=== PATIENT | female | born 1975 | race Caucasian/White ===

== ENCOUNTER → 2017-01-27 | Outpatient (CLI) | payer OTHER ==
[2016-06-08 23:13] VITALS: BP 137/81
[~2017-01-27] MED LIST: FLUT1DIS3 IH; LAMO200T PO; LAMO25TA5 PO; LEVO150T5 PO; LEVO75TA5 PO; LORA1TAB PO; LURA120T PO; LURA40TA PO; OXYC10TA PO; OXYC5CAP3 PO; PARO40TA3 PO; PROAIR HFA8.5 GM IH; TRAZ100T12 PO; VARE0.5T PO; VARE1TAB5 PO
[2017-01-27 15:05] LABS: BASO # 0.1 x10^3/uL (0.0-0.2); BASO % 1 % (0-3); EOS % 2 % (0-3); HEMATOCRIT 39.2 % (36.0-47.0); HEMOGLOBIN 13.6 g/dL (12.0-15.5); LYMPH # 1.6 x10^3/uL (1.0-4.8); LYMPH % 19 % (24-48); MEAN CORPUSCULAR HEMOGLOBIN 30 pg (25-35); MEAN CORPUSCULAR HGB CONC 35 g/dL (31-37); MEAN CORPUSCULAR VOLUME 87 fL (79-100); MONO % 6 % (0-9); NEUT % 72 % (31-73); PLATELET COUNT 285 x10^3/uL (140-400); RED BLOOD COUNT 4.52 x10^6/uL (3.50-5.40); RED CELL DISTRIBUTION WIDTH 14.8 % (11.5-14.5); WHITE BLOOD COUNT 8.6 x10^3/uL (4.0-11.0)
--- NOTE | 2017-01-27 15:27 | EKG ---
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
[2017-01-27 15:41] LABS: ALBUMIN 3.4 g/dL (3.4-5.0); ALBUMIN/GLOBULIN RATIO 0.9 (1.0-1.7); CALCIUM 9.1 mg/dL (8.5-10.1); CREATININE 0.9 mg/dL (0.6-1.0); GFR 69.3; POTASSIUM 3.8 mmol/L (3.5-5.1); TOTAL BILIRUBIN 0.2 mg/dL (0.2-1.0)
[2017-01-27 15:54] LABS: BILIRUBIN,URINE NEGATIVE (NEG); GLUCOSE,URINE NEGATIVE (NEG); NITRITE,URINE NEGATIVE (NEG); PROTEIN,URINE NEGATIVE (NEG-TRACE); UROBILINOGEN,URINE 0.2 mg/dL (0.2 mg/dL)
--- NOTE | 2017-01-27 15:59 | RAD ---
Indication preop. Anticipated hysterectomy. PA and lateral views of the chest were obtained and are compared to an examination 08/29/2015. The heart and pulmonary vessels are within normal limits. Acute parenchymal infiltrate is not seen. Significant pleural fluid is not present. There is no pneumothorax. The bony structures appear grossly intact. The stomach is somewhat distended with air. IMPRESSION: No acute or focal process seen in the chest
[2017-01-27 16:17] LABS: BACTERIA,URINE MODERATE /HPF (0-FEW); SQUAMOUS EPITHELIAL CELL,UR MANY /LPF; WBC,URINE 20-40 /HPF (0-4)
== END | disposition home or self-care (01) ==
LOC: SURGPAT 14:23
PROVIDERS: ATTEND Obstetrics & Gynecology
DX: Z01.818 Encounter for other preprocedural examination (principal)
CPT/HCPCS: 36415; 71020; 80053; 81001; 85027; 87086; 93005

== ENCOUNTER 2017-02-04 05:50 | Observation (INO) | payer OTHER ==
[~2017-02-04] VITALS: Ht 165.1 cm; Wt 142.4 kg
[2017-02-04] VITALS (12 sets, daily range): BP systolic 97–135; BP diastolic 45–72
[2017-02-04 06:25] LABS: NEG OBC UR NEG; POS OBC UR POS
[2017-02-04] MEDS ORDERED: LIDOCAINE 1% 1 ML SYRINGE. ID PRN (07:00)
[2017-02-04] MEDS ORDERED: HYDROmorphone 2 MG/ML VIAL IV PRN (07:00)
[2017-02-04] MEDS ORDERED: PROCHLORPERAZINE 10 MG/2 ML VIAL. IV PRN (07:00)
[2017-02-04] MEDS ORDERED: fentaNYL PF VIAL 100 MCG/2 ML VIAL IV PRN (07:00)
[2017-02-04] MEDS ORDERED: IV RINGERS,LACTATED 1000ML 1,000 ML IV SCH (07:00)
[2017-02-04] MEDS ORDERED: ONDANSETRON PF 4 MG/2 ML VIAL. IV PRN ×2 (07:00→09:45)
[2017-02-04] MEDS ORDERED: ESTROGENS, CONJ VAGINAL CREAM 30GM TUBE. ONE (07:01)
[2017-02-04] MEDS ORDERED: BUPIVACAINE-EPI 0.25%-1:200000 MPF 30 ML VIAL. ONE (07:01)
[2017-02-04] MEDS ORDERED: METHYLENE BLUE 1% 1 ML VIAL. ONE (07:01)
[2017-02-04] MEDS ORDERED: ROCURONIUM 50 MG/5 ML VIAL. ONE (07:17)
[2017-02-04] MEDS ORDERED: MIDAZOLAM HCL/PF 2 MG/2 ML VIAL. ONE (07:17)
[2017-02-04] MEDS ORDERED: fentaNYL PF VIAL 250 MCG/5 ML VIAL ONE (07:17)
[2017-02-04] MEDS ORDERED: ONDANSETRON PF 4 MG/2 ML VIAL. ONE (07:18)
[2017-02-04] MEDS ORDERED: LIDOCAINE 2% PF Vial for OR 5 ML VIAL. ONE (07:18)
[2017-02-04] MEDS ORDERED: DESFLURANE > 120 MINUTES IH ONE (07:18)
[2017-02-04] MEDS ORDERED: PROPOFOL 20 ML IV ONE (07:18)
[2017-02-04] MEDS ORDERED: DEXAMETHASONE SOD PHOS 20 MG/5 ML VIAL. ONE (07:18)
[2017-02-04] MEDS ORDERED: FAMOTIDINE 20 MG/2 ML VIAL ONE (07:23)
[2017-02-04] MEDS ORDERED: NON FORMULARY ITEM (Albuterol Sulfate (Proair Hfa Inhaler) 2 PUFF) IH SCH (07:45)
[2017-02-04] MEDS: ALBUTEROL SULFATE 2.5 MG/3 ML NEBU. NEB SCH ×2 (08:00→12:30)
[2017-02-04] MEDS ORDERED: BUDESONIDE 0.5 MG/2 ML NEBU. NEB SCH (08:00)
[2017-02-04] MEDS ORDERED: ALBUTEROL SULFATE 2.5 MG/3 ML NEBU. NEB PRN (08:00)
[2017-02-04] MEDS ORDERED: GLYCOPYRROLATE 1 MG/5 ML VIAL. ONE (08:22)
[2017-02-04] MEDS ORDERED: NEOSTIGMINE 10 MG/10 ML VIAL. ONE (08:22)
[2017-02-04] MEDS ORDERED: VARENICLINE 0.5 MG TABLET. PO SCH (09:00)
[2017-02-04] MEDS ORDERED: NON FORMULARY ITEM (Fluticasone/Salmeterol (Advair 250-50 Diskus) 1 PUFF) IH SCH (09:00)
[2017-02-04] MEDS ORDERED: MORPHINE SULFATE 10 MG/ML VIAL. ONE (09:19)
--- NOTE | 2017-02-04 09:33 | PDOC ---
BRIEF OPERATIVE NOTE Date: February 04, 2017 Pre-Op Diagnosis menorrhagia, failed IUD, pelvic pain Post-Op Diagnosis same plus endometriosis Procedure Performed LAVH/BSO Surgeon Dr. Almita Young Grit Removal Operator Dr. Vanessa Schumacher Anesthesiologist Dr. Jolley Anesthesia Type: General Blood Loss 200cc IV Fluid see anesthesia records Urine Output 75cc clear via bauman catheter Specimens Obtained cervix, uterus, bilateral tubes and ovaries Findings mildly enlarged uterus, normal bilateral tubes with evidence of prior tubal ligation, and ovaries Complications none Additional Remarks [id number] ALMITA YOUNG MD February 04, 2017 09:33
[2017-02-04] MEDS: fentaNYL PF VIAL 100 MCG/2 ML VIAL IV PRN ×2 (09:38→09:59)
[2017-02-04] MEDS ORDERED: ZOLPIDEM 5 MG TABLET. PO PRN (09:45)
[2017-02-04] MEDS ORDERED: CALCIUM CARBONATE 500 MG TAB.CHEW PO PRN (09:45)
[2017-02-04] MEDS ORDERED: 0.9 % SODIUM CHLORIDE 10 ML DISP.SYRIN. IV PRN (09:45)
[2017-02-04] MEDS ORDERED: ESTRADIOL WEEKLY 0.1 MG PATCH. TD SCH (09:45)
[2017-02-04] MEDS ORDERED: LACTULOSE 20 GM/30 ML SOLUTION. PO PRN (09:45)
[2017-02-04] MEDS ORDERED: HYDROcodone/APAP 5/325MG 1 TAB TABLET PO PRN (09:45)
[2017-02-04] MEDS ORDERED: diphenhydrAMINE 50 MG/ML VIAL IV PRN (09:45)
[2017-02-04] MEDS ORDERED: diphenhydrAMINE HCL 25 MG CAPSULE PO PRN (09:45)
[2017-02-04] MEDS ORDERED: MAGNESIUM HYDROXIDE 2,400 MG/30 ML ORAL.SUSP. PO PRN (09:45)
[2017-02-04] MEDS ORDERED: MORPHINE SULFATE 2 MG/ML DISP.SYRIN. IV PRN (09:45)
[2017-02-04] MEDS ORDERED: MAG HYDROX/ALUMINUM HYD/SIMETH 30 ML ORAL.SUSP PO PRN (09:45)
[2017-02-04] MEDS ORDERED: SIMETHICONE 80 MG TAB.CHEW PO PRN (09:45)
[2017-02-04] MEDS ORDERED: NALOXONE 0.4 MG/ML VIAL. IV PRN (09:45)
[2017-02-04] MEDS: KETOROLAC TROMETHAMINE 30 MG/ML INJ. IV PRN ×2 (10:15→15:52)
[2017-02-04] MEDS: MORPHINE SULFATE 2 MG/ML DISP.SYRIN. IV PRN ×2 (10:24→10:40)
--- NOTE | 2017-02-04 12:23 | OP ---
DATE OF SURGERY: 02/04/2017 PREOPERATIVE DIAGNOSES: Menorrhagia, failing Mirena IUD, and pelvic pain. POSTOPERATIVE DIAGNOSES: Menorrhagia, failing Mirena IUD, pelvic pain, and endometriosis. PROCEDURE PERFORMED: Laparoscopic-assisted vaginal hysterectomy, bilateral salpingo-oophorectomy. SURGEON: Fabien Young M.D. and Vanessa Schumacher MD ANESTHESIA: General. ESTIMATED BLOOD LOSS: 200 mL. URINE OUTPUT: 75 mL clear via Higgins catheter. SPECIMEN REMOVED: Cervix, uterus, and bilateral tubes and ovaries. FINDINGS: Mildly enlarged uterus, normal bilateral tubes with evidence of prior tubal ligation, normal bilateral ovaries. She did have some endometriosis on the left pelvic sidewall overlying the ureter area. However, it was very dense and thick with adipose tissue, so difficult to see within that area with a patch of endometriosis. COMPLICATIONS: None. DESCRIPTION OF PROCEDURE: This patient was taken to the Operating Room where general anesthesia was placed. The patient was placed in dorsal lithotomy position in Jaime stirrups. The patient's abdomen and vagina were prepped and draped in the normal sterile fashion, and a Higgins catheter was inserted under sterile technique. After a timeout was performed, a bivalve speculum was placed in the patient's vagina. A single tooth tenaculum was used to grasp the anterior lip of the cervix. The ValtchBebo uterine manipulator was placed through the endocervical os, locked on the single tooth tenaculum, and the bivalve speculum was then removed. Top gloves were discarded and changed. Attention was then turned to the abdomen. Upon pushing the uterus up and feeling it mildly enlarged, I did not want to go right at the umbilicus as she was obese with a shortened abdomen from the waist to the pubic bone, so I did go above and to the left ovary scar from her previous Kevin fundoplication, so I went over this scar, carried it down to the underlying layer with a curved Emely and used the Visiport to directly enter the abdominal cavity. Opening patient pressure was 4 mmHg. At this point, carbon dioxide gas was used to appropriately insufflate the abdominal cavity to maintain a pressure of 15 mmHg. The patient was placed in Trendelenburg position, and direct abdominal placement was confirmed via the laparoscope. There were no pelvic adhesions. The gutters looked clear. The right upper quadrant, where the liver was, looked clear. So, right and left lower quadrant ports were placed under direct visualization atraumatically with 5-mm Ethicon disposable atraumatic ports. At this point, the left round ligament was identified, cauterized, and cut in a stepwise fashion creating a window in the mesosalpinx, going down and making that bladder flap sharply with the monopolar tip and lifting and cutting it along the edge. Once this was done, the left tube and ovary were elevated. That patch of endometriosis was seen on the left pelvic sidewall when we were examining and looking for the ureter. We went high up on the infundibulopelvic ligament just under the ovary, cauterized and cut it taking the ovary per the patient's request and going down and getting the uterine vessels on this side as well. Once this was done, the exact same thing was done on the right side first starting at the right round ligament with using the LigaSure Advance, cauterizing and cutting in a stepwise fashion, creating that window in the mesosalpinx, going down and further meeting that bladder flap anteriorly, and elevating the right tube and ovary. The right side was less fatty, less ____, and the ureter could be seen coursing low in the pelvis. So again, we stayed high on the infundibulopelvic ligament, cauterizing and cutting that ligament, going down and getting the uterines on this side with the uterus starting to deondre. Making sure the bladder was down anteriorly, crossing contralaterally, hugging the cervix, staying vertical, going down through the cardinal and broad ligaments to the uterosacral ligaments bilaterally. Once this was done, the uterus was free. All instruments were removed from the abdomen, and attention was turned vaginally. The Valtchev and single tooth were removed. A short weighted speculum was placed in the patient's vagina. Thyroid Matthew clamps were placed on the anterior and posterior lips of the cervix respectively. A scalpel was used to make a circumferential incision in the cervix. Once this was done, an open Ray-Elise was used. There was a good opening on the patient's left side, ____ a plane that could be found. I believe I went a little deep and was actually cutting into the cervix, right in the middle, so I was able to find that and cut a track over from there to the plane, and then used Hanson and Metzenbaum scissors to cut in the correct plane anteriorly. I also elevated the cervix, and the posterior cul-de-sac was sharply entered with the Hanson scissors. A #0 Vicryl stitch was used to secure the posterior peritoneum to the vaginal cuff here, and it was tagged with a curved Emely clamp, and a needle was cut and passed off. The short weighted speculum was removed and replaced with the long weighted Rita speculum. At this point, curved Nina clamps x2 were placed on the patient's left uterosacral ligament. They were doubly clamped with curved Heaneys, cut with Hanson scissors, and suture ligated x2 with #0 Vicryl taking the second one through the vaginal cuff securing the uterosacral ligament to the vaginal cuff and tagging it with a straight Emely clamp, cutting and passing the needle off. Again, I could get a right angle clamp around this side, so it was taken around freeing up the entire left side. It was taken around. The remaining pedicle was cauterized with the vaginal LigaSure Max with the right angle clamp delineating the pedicle and then cauterizing with the vaginal LigaSure Max and cutting with Hanson scissors. So the entire left side was free. The right side was not as clearly delineated, so a bite was taken with the vaginal LigaSure Max until I could get the right angle clamp around the remaining pedicle and again the vaginal LigaSure Max was used to cauterize and then using the Hanson scissors to cut this in a stepwise fashion until the entire right side was free as well. The cervix, uterus, bilateral tubes and ovaries were delivered in total and passed off for permanent pathology. There was no Ray-Elise. As soon as I got in, I did remove it and pass it off right away just putting the curved Karina in anteriorly. A sponge stick was used to examine the pedicles. I did go back since the right side did not have a good uterosacral bite, and it was different. I went back and tried to get a piece of that pedicle and secure it to the vaginal cuff and tagged it. A #0 Vicryl stitch was used here and tagged it with a straight Emely clamp so I could examine all the pedicles and have something when I did the peritoneal stitch as well. There appeared to be no active bleeding. The anterior peritoneum was grasped with a long Allis. A 2-0 Vicryl was taken through the anterior bladder, peritoneum, left uterosacral ligament, posterior peritoneum, and right uterosacral ligament, thus closing the peritoneum in a pursestring like fashion. This was cut and so were both uterosacral tags. At this point, a full length 2-0 Vicryl was taken with a running locked stitch through the vaginal cuff, and it was tied to that posterior cuff tag. As a few stitches in the middle were placed where it kind of dove in where the uterosacrals where just to make sure they were hemostatic and enforced this vaginal cuff, but it was hemostatic and looked good. So, all instruments were removed from the vagina, and all gloves were discarded and changed, and attention was turned abdominally again for a second look. At this point, the gas was reinsufflated. The patient was placed back in Trendelenburg with excellent results. There was no active bleeding. The cul-de-sac was dry. Both pericolic gutters were dry. Up near the liver again, it appeared clear. So, copious irrigation was done to ensure hemostasis. Tisseel was placed over the cuff with excellent results. Both right and left lower quadrant ports were taken out under direct visualization. These two were hemostatic. Gas was released from the supraumbilical port. All three port sites were closed with 4-0 nylon at the level of the skin and injected with a total of 10 mL of 0.25% Marcaine with epinephrine. The patient was awakened from anesthesia and brought to the Recovery Room in stable condition. FABIEN YOUNG MD DR: BALDEMAR/jethro JOB#: [id number] / [id number]
[2017-02-04] MEDS: oxyCODONE/APAP 5/325 1 TAB TABLET PO PRN ×3 (14:10→22:39)
[2017-02-04] MEDS ORDERED: traZODone 100 MG TABLET. PO SCH (21:00)
[2017-02-05 05:40] LABS: CALCIUM 8.4 mg/dL (8.5-10.1); CREATININE 0.8 mg/dL (0.6-1.0); GFR 79.4; POTASSIUM 4.3 mmol/L (3.5-5.1)
[2017-02-05] MEDS: oxyCODONE/APAP 5/325 1 TAB TABLET PO PRN (06:14)
[2017-02-05 06:15] VITALS: BP 97/56
[2017-02-05] MEDS ORDERED: LEVOTHYROXINE 150 MCG TABLET PO SCH (07:30)
--- NOTE | 2017-02-05 08:01 | PDOC ---
SURGICAL PROGRESS NOTE Subjective Doing well without complaints. No n/v, voiding without catheter, ambulating well. Wants to go home. No problems, minimal pain Vital Signs Vital Signs Date Time Temp Pulse Resp B/P (MAP) Pulse Ox O2 Delivery O2 Flow Rate FiO2 02/05/17 06:15 98.4 77 18 97/56 (70) 98 Room Air 98.4 02/04/17 10:50 2.0 I&O Intake and Output 02/05/17 07:00 Intake Total 3050 ml Output Total 2675 ml Balance 375 ml Intake Oral 1300 ml IV Total 1750 ml Output Urine Total 2375 ml Estimated Blood Loss 300 ml PATIENT HAS A GILMAN: No General: Alert, Oriented X3, Cooperative, No acute distress HEENT: Atraumatic Heart: Regular rate Abdomen: Normal bowel sounds, Soft, No tenderness, Other (all port sites c/d/i) Extremities: No clubbing, No cyanosis, No edema, No tenderness/swelling Skin: No rashes, No breakdown Neuro: Normal speech Psych/Mental Status: Mental status NL, Mood NL Labs Laboratory Tests Test 02/04/17 06:15 02/05/17 03:50 Urine Test Negative (NEG) Hematocrit 36.6 % (36.0-47.0) Sodium Level 142 mmol/L (136-145) Potassium Level 4.3 mmol/L (3.5-5.1) Chloride Level 109 mmol/L (98-107) Carbon Dioxide Level 25 mmol/L (21-32) Anion Gap 8 (6-14) Blood Urea Nitrogen 11 mg/dL (7-20) Creatinine 0.8 mg/dL (0.6-1.0) Estimated GFR (Cockcroft-Gault) 79.4 Glucose Level 98 mg/dL (70-99) Calcium Level 8.4 mg/dL (8.5-10.1) Laboratory Tests Test 02/05/17 03:50 Hematocrit 36.6 % (36.0-47.0) Sodium Level 142 mmol/L (136-145) Potassium Level 4.3 mmol/L (3.5-5.1) Chloride Level 109 mmol/L (98-107) Carbon Dioxide Level 25 mmol/L (21-32) Anion Gap 8 (6-14) Blood Urea Nitrogen 11 mg/dL (7-20) Creatinine 0.8 mg/dL (0.6-1.0) Estimated GFR (Cockcroft-Gault) 79.4 Glucose Level 98 mg/dL (70-99) Calcium Level 8.4 mg/dL (8.5-10.1) I have reviewed the following labs, vitals, nursing Cardiovascular: No pertinent hx Pulmonary: Other (history of sleep apnea) GI: No pertinent hx Psych: Bipolar Assessment/Plan POD#1 s/p LAVH/BSO routine po care d/c to home later today NPV x 6 weeks Light/limited activity x [address] while on narcotics and at least one week keep scheduled follow up in one week with me in the office already has percocet filled at home call or return sooner for any other questions or concerns not limited to but including pain unrelieved with pain pills, increased or unexplained vaginal bleeding or T>100.4 Problems: FABIEN BARNETT MD Feb 05, 2017 08:00
--- NOTE | 2017-02-05 11:37 | PDOC3 ---
Discharge Summary Visit Information Date of Admission: February 04, 2017 Date of Discharge: Feb 05, 2017 Admitting Diagnosis Comment: menorrhagia Final Diagnosis same Brief Hospital Course Allergies Allergies Coded Allergies Type Severity Reaction Last Updated Verified latex Allergy Intermediate 02/04/17 Yes Vital Signs Vital Signs Date Time Temp Pulse Resp B/P (MAP) Pulse Ox O2 Delivery O2 Flow Rate FiO2 02/05/17 08:00 Room Air 02/05/17 06:15 98.4 77 18 97/56 (70) 98 98.4 02/04/17 10:50 2.0 Lab Results Laboratory Tests Test 02/04/17 06:15 02/05/17 03:50 Urine Test Negative (NEG) Hematocrit 36.6 % (36.0-47.0) Sodium Level 142 mmol/L (136-145) Potassium Level 4.3 mmol/L (3.5-5.1) Chloride Level 109 mmol/L (98-107) Carbon Dioxide Level 25 mmol/L (21-32) Anion Gap 8 (6-14) Blood Urea Nitrogen 11 mg/dL (7-20) Creatinine 0.8 mg/dL (0.6-1.0) Estimated GFR (Cockcroft-Gault) 79.4 Glucose Level 98 mg/dL (70-99) Calcium Level 8.4 mg/dL (8.5-10.1) Laboratory Tests Test 02/05/17 03:50 Hematocrit 36.6 % (36.0-47.0) Sodium Level 142 mmol/L (136-145) Potassium Level 4.3 mmol/L (3.5-5.1) Chloride Level 109 mmol/L (98-107) Carbon Dioxide Level 25 mmol/L (21-32) Anion Gap 8 (6-14) Blood Urea Nitrogen 11 mg/dL (7-20) Creatinine 0.8 mg/dL (0.6-1.0) Estimated GFR (Cockcroft-Gault) 79.4 Glucose Level 98 mg/dL (70-99) Calcium Level 8.4 mg/dL (8.5-10.1) Brief Hospital Course Ms. Terry is a 41 old female who presented with long history of menorrhagia. On 2nd Mirena IUD for menorrhagia and not working as well as the first one. Pt is morbidly obese, but failing medical management and desiring definitive therapy with a hysterectomy. She underwent an LAVH/BSO yesterday without complications,. She has had an unremarkable postoperative course and is desiring to go home. Hct is great, afebrile with stable vitals. She is eating without n/v, ambulating well, voiding without catheter. Minimal vaginal bleeding when uses restroom. Discharge Information Condition at Discharge: Improved Follow Up: Weeks Disposition/Orders: D/C to Home Scheduled Albuterol Sulfate (Proair Hfa Inhaler), 2 PUFF IH PRN Q4-6HRS, (Reported) Fluticasone/Salmeterol (Advair 250-50 Diskus), 1 PUFF IH BID, (Reported) Levothyroxine Sodium (Levothyroxine Sodium), 150 MCG PO DAILYAC, (Reported) Trazodone Hcl (Trazodone Hcl), 100 MG PO QHS, (Reported) Varenicline Tartrate (Chantix), 0.5 MG PO BID, (Reported) Patient Instructions Patient Instructions POD#1 s/p LAVH/BSO Routine care d/c to home today NPV x 6 weeks light/limited activity x [address] while on narcotic pain meds or at least one week keep scheduled follow up with me in one week Call or return sooner if you have any other questions or concerns not limited to but including pain unrelieved with pain pills, increased or unexplained vaginal bleeding or T>100.4 FABIEN BARNETT MD Feb 05, 2017 11:37
--- NOTE | 2017-02-10 16:36 | PATHOLOGY ---
PATHOLOGY REPORT * * * * * * * * FINAL DIAGNOSIS: Uterus, bilateral fallopian tubes and ovaries, laparoscopic associated vaginal hysterectomy with bilateral salpingo-oophorectomy: - ENDOMETRIOID ADENOCARCINOMA INVASIVE, FIGO GRADE 1, FORMING A TUMOR MASS INVOLVING THE LOWER UTERINE SEGMENT AND CERVIX MEASURING UP TO 7.0 CM IN GREATEST DIMENSION, WITH TUMOR INVASION DEEP INTO OUTER MYOMETRIAL WALL OF LOWER UTERINE SEGMENT AND UTERINE CERVIX. - Tumor mass is approximately 1.5 cm from the exocervical margin. - Tumor is approximately 0.3-0.4 cm from the anterior and posterior radial cervical soft tissue margins. - Tumor is approximately 0.1 cm from the posterior lower uterine segment radial margin, and 0.2 cm from the anterior lower uterine segment radial margin. - Tumor is approximately 0.1-0.2 cm from the closest parametrial margin. - Mild chronic cervicitis with focal squamous metaplasia and few Nabothian cysts. - Presence of intrauterine contraceptive device. - Chronic endometritis with stromal deciduoid change. - Adenomyosis, uterine corpus, subbasal, focal. - Status post bilateral tubal ligation. - Paratubal cysts bilateral. - Hemorrhagic corpus luteal cyst of right ovary. - Few cystic follicles of left ovary. SYNOPTIC CANCER STAGING REPORT Specimen: Uterine corpus CLINICAL Clinical History: Other: Uterine bleeding. SPECIMEN Procedure Procedure: Simple hysterectomy Additional Procedures: Bilateral salpingo-oophorectomy Specimen Integrity: Intact hysterectomy specimen Lymph Node Sampling: Not performed TUMOR Primary Tumor Site: Lower uterine segment Histologic Type: Endometrioid adenocarcinoma Histologic Grade: FIGO grade 1 Tumor Size: Greatest dimension (cm): 7.0 Tumor Extent Myometrial Invasion: Present Depth of Myometrial Invasion: Specify depth of invasion (mm): 19 Myometrial Thickness: Specify (mm): 20 Tumor Involvement of Cervix: Invasion of cervical stromal connective tissue Extent of Involvement of Other Organs: Right ovary Not involved Left ovary Not involved Right fallopian tube Not involved Left fallopian tube Not involved Right parametrium Not involved Left parametrium Not involved Peritoneal Ascitic Fluid: Not performed / unknown Accessory Tumor Findings Lymph-Vascular Invasion: Not identified MARGINS Margins: Uninvolved by invasive carcinoma Distance of Invasive Carcinoma from Closest Margin (mm): Specify (mm): 15 Specify Margin: Specify Margin: Exocervix. LYMPH NODES Regional Lymph Nodes: No lymph nodes submitted or found STAGE (PTNM) Primary Tumor (pT): pT2: Tumor invades stromal connective tissue of the cervix, but does not extend beyond uterus Regional Lymph Nodes (pN) Category (pN): pNX: Cannot be assessed FIGO STAGE FIGO Stage: II: Tumor invades cervical stroma, but does not extend beyond the uterus ADDITIONAL FINDINGS Additional Pathologic Findings: Other: See diagnoses. COMMENT: The case is also examined by Dr. [place] Pacheco, who concurs with the diagnosis. (JPM:csd; d/t: 02/10/2017) REPORT ELECTRONICALLY SIGNED BY: Anthony Braden M.D. DATE/TIME: 02/10/2017 16:34 * * * * * * * * GROSS PATHOLOGY: The specimen is received in formalin, labeled "Harrison, uterus, cervix, both ovaries and fallopian tubes", and consists of a uterus with cervix and attached fallopian tubes and ovaries. Following removal of adnexal structures the uterus weighs 174 g and measures 11.5 6 5.5 cm. Serosa is generally smooth. The ectocervix measures 3.5 cm in diameter and has a centrally located patent ovoid external os 1.2 0.7 cm. Paracervical soft tissue margins are marked with black dye. Endometrial cavity measures about 5.5 3.7 cm. Involving portions of the endometrial cavity and largely the lower uterine segment and cervical region is a poorly defined necrotic shaggy foss-white mass measuring about 7 4 4.8 cm. The mass is located 1.5 cm from the ectocervix and is located 2-3 mm from some radial soft tissue margins grossly. The mass invades the myometrium and involves greater than 50% of the 1.8 cm myometrial thickness in the region of the lower uterine segment and cervical areas. The mass is located by 1.5 cm from the portio vaginalis resection margins. Within the endometrial cavity is found a white plastic intrauterine contraceptive device having a roughly T-shaped configuration measuring 3.2 3.2 0.3 cm which has some attached parks plastic line at one end. Right and left ovary measure 3.8 2 1.5 and 3 2.1 2 cm respectively. Cortical surfaces are convoluted. Ovarian stroma is pale foss and is without obvious nodules or masses. Near one pole of the right ovary is a red-brown corpus luteum measuring 1.6 cm in diameter. Several smooth lined cysts within the left ovary measuring up to 0.8 cm in diameter. A hemorrhagic corpus luteum in the left ovary measures 0.7 cm. Each fallopian tube measures about 6 cm in length and averages 0.6 cm in diameter. The continuity of each tube is interrupted with some apparent missing tissue in a manner suggestive of previous tubal ligation. The serosal surface of the right tube is congested and a prominent paratubal cyst measures 0.6 cm in diameter. A prominent paratubal cyst adjacent to the surface of the left tube measures 1.5 cm in diameter and contains watery fluid. Mixed Crop Farmer sections are submitted as follows: En face sections of portion vaginalis resection margins from 12-6:00 regions A1, en face sections of portio vaginalis resection margins from 6-12:00 A2, perpendicular sections of anterior cervix and adjacent tumor A3-A4, perpendicular sections from posterior cervix and adjacent tumor A5-A6, tumor involving anterior lower uterine segment and cervical region A 7-A8, tumor and adjacent parametrial soft tissue A9, anterior uterine wall and endometrial cavity A10-A 11, posterior lower uterine segment and adjacent tumor A12-A13, posterior uterine wall A14-A15, right ovary and fallopian tube A 16 and A 17 respectively and left ovary and fallopian tube A18 and A19 respectively. ([facility]; 02/06/2017) INITIAL CPT CODE(S): A; 15463 Professional services performed by [facility] at [address] [address] Technical services performed by [facility] at [address] [place] [address], [facility] [address] [address]. SPECIMEN(S) RECEIVED: A.Uterus, cervix, both ovaries and tubes CLINICAL HISTORY: Irregular menses, menorrhagia, dysmenorrhea PATIENT: MICHEAL SANDOVAL /AGE: 8 1975 (Age: 41) PATIENT #: [id number] ALT CASE #: SPECIMEN COLLECTION DATE: 02/04/2017 SPECIMEN RECEIVED DATE: 02/04/2017 [facility] - [id number] [address] - PHONE: [phone] * * * END OF REPORT * * *
== END 2017-02-05 09:10 | disposition home or self-care (01) ==
LOC: SURG 05:50 → 3 NORTH 09:45
PROVIDERS: ADMIT Obstetrics & Gynecology; ATTEND Obstetrics & Gynecology
DX: N92.0 Excessive and frequent menstruation with regular cycle (principal); T83.39XA Other mechanical complication of intrauterine contraceptive device, initial encounter; R10.2 Pelvic and perineal pain; N80.9 Endometriosis, unspecified; N85.2 Hypertrophy of uterus; E66.01 Morbid (severe) obesity due to excess calories; Z98.51 Tubal ligation status; Y84.8 Other medical procedures as the cause of abnormal reaction of the patient, or of later complication, without mention of misadventure at the time of the procedure; Y92.89 Other specified places as the place of occurrence of the external cause
CPT/HCPCS: 36415; 58552; 80048; 81025; 85014; 86850; 86900; 86901; 94250; 94760; 96374; C1769; G0378; G0379; J0694; J0780; J1100; J1885; J2250; J2270; J2704; J2710; J3010; J3490; J7030; J7120; S0028; J2405; Q9968

== ENCOUNTER 2017-03-17 16:59 | Emergency (ER) | payer OTHER ==
[~2017-03-17] VITALS: Ht 165.1 cm; Wt 134.3 kg
[~2017-03-17 16:59] MED LIST changes: +OXYC5CAP PO; -OXYC5CAP3 PO
[2017-03-17] MEDS ORDERED: IV NORMAL SALINE 1000ML BAG 1,000 ML IV SCH (17:13)
[2017-03-17] MEDS ORDERED: ASPIRIN CHEWABLE 81 MG TABLET. PO ONE (17:15)
[2017-03-17 17:23] LABS: BASO # 0.1 x10^3/uL (0.0-0.2); BASO % 1 % (0-3); EOS % 2 % (0-3); HEMOGLOBIN 13.6 g/dL (12.0-15.5); LYMPH % 24 % (24-48); MEAN CORPUSCULAR HEMOGLOBIN 30 pg (25-35); MEAN CORPUSCULAR HGB CONC 34 g/dL (31-37); MEAN CORPUSCULAR VOLUME 88 fL (79-100); MONO % 5 % (0-9); NEUT % 68 % (31-73); PLATELET COUNT 257 x10^3/uL (140-400); RED BLOOD COUNT 4.56 x10^6/uL (3.50-5.40); RED CELL DISTRIBUTION WIDTH 13.5 % (11.5-14.5); WHITE BLOOD COUNT 8.6 x10^3/uL (4.0-11.0)
[2017-03-17] MEDS ORDERED: IOHEXOL 300 MG/ML 75 ML VIAL IV ONE (17:30)
[2017-03-17] MEDS ORDERED: CONTRAST GIVEN MC PRN (17:30)
[2017-03-17 17:33] LABS: CALCIUM 9.1 mg/dL (8.5-10.1); CREATININE 0.8 mg/dL (0.6-1.0); GFR 79.4
[2017-03-17 17:39] LABS: ALBUMIN 3.4 g/dL (3.4-5.0); ALBUMIN/GLOBULIN RATIO 0.9 (1.0-1.7); TOTAL BILIRUBIN 0.2 mg/dL (0.2-1.0); TOTAL PROTEIN 7.1 g/dL (6.4-8.2)
[2017-03-17] MEDS ORDERED: ALPRAZolam 0.5 MG TABLET PO ONE (18:00)
[2017-03-17] MEDS ORDERED: HYDROcodone/APAP 5/325MG 1 TAB TABLET PO ONE (18:00)
--- NOTE | 2017-03-17 18:53 | RAD ---
CT pulmonary angiogram with intravenous contrast History: Chest pain Comparison: Same examination December 31, 2012. Technique: CT pulmonary angiogram of the chest with attention to the pulmonary arteries was performed after the administration of intravenous contrast, 75 mL Omnipaque-300. Axial 2-D reconstructions were obtained. Coronal 3-D MIPS were obtained of the pulmonary arterial vasculature of the chest. Exposure: One or more of the following individualized dose reduction techniques were utilized for this examination: 1. Automated exposure control 2. Adjustment of the mA and/or kV according to patient size 3. Use of iterative reconstruction technique Findings: Pulmonary arteries are adequately opacified to exclude proximal segmental or larger pulmonary embolism. Evaluation for small pulmonary embolism is limited secondary to level opacification as well as presence of motion artifact at multiple levels. Trachea and mainstem bronchi appear patent. Visualized thyroid appears symmetric. No acute airspace disease is identified. No pneumothorax or pleural effusion is seen. No mediastinal lymphadenopathy is seen. Thoracic aorta has normal caliber. Heart and pericardium are unremarkable. Images of the upper abdomen demonstrate small radiodensities adjacent to the left hepatic lobe. The medial aspect of the spleen also demonstrates low-density lesion measuring 3.1 cm. Impression: 1. No evidence of proximal segmental or larger pulmonary embolism embolism. 2. No acute abnormality identified in the chest. 3. 3.1 cm low-density lesion involving the medial aspect of the spleen. This was likely present on the previous study. This is nonspecific, but could represent cyst or hemangioma. Electronically signed by: Khang Ferguson MD (03/17/2017 6:49 PM) [email or web address]
[2017-03-17 19:32] VITALS: BP 122/58
--- NOTE | 2017-03-17 19:33 | PHYS DOC ---
Past Medical History Past Medical History: Arthritis, Asthma, Bipolar, Cancer, Depression, Hypothyroid, NE, Other Additional Past Medical Histor: chronic back and knee pain; uterine CA Past Surgical History: Hysterectomy, Tonsillectomy, Tubal ligation, Other Additional Past Surgical Histo: fundolplication, tendonitis, carpal tunnel Alcohol Use: None Drug Use: None Adult General Chief Complaint Chief Complaint: CHEST PAIN HPI HPI Patient is a 41 year old [f__sex] who presents with [] Review of Systems Review of Systems Constitutional: Denies fever or chills [] Eyes: Denies change in visual acuity, redness, or eye pain [] HENT: Denies nasal congestion or sore throat [] Respiratory: Denies cough or shortness of breath [] Cardiovascular: No additional information not addressed in HPI [] GI: Denies abdominal pain, nausea, vomiting, bloody stools or diarrhea [] : Denies dysuria or hematuria [] Musculoskeletal: Denies back pain or joint pain [] Integument: Denies rash or skin lesions [] Neurologic: Denies headache, focal weakness or sensory changes [] Endocrine: Denies polyuria or polydipsia [] Current Medications Current Medications Current Medications Medications (Trade) Dose Ordered Sig/Daisy Start Time Stop Time Status Last Admin Dose Admin Acetaminophen/ Hydrocodone Bitart (Lortab 5/325) 1 tab 1X ONCE 03/17/17 18:00 03/17/17 18:01 DC 03/17/17 17:53 1 TAB Alprazolam (Xanax) 1 mg 1X ONCE 03/17/17 18:00 03/17/17 18:01 DC 03/17/17 17:53 1 MG Aspirin (Children'S Aspirin) 324 mg 1X ONCE 03/17/17 17:15 03/17/17 17:20 DC Info (Do NOT chart on this entry -- for MONITORING) 1 each PRN DAILY PRN 03/17/17 17:30 03/19/17 17:29 Iohexol (Omnipaque 300 Mg/ml) 75 ml 1X ONCE 03/17/17 17:30 03/17/17 17:31 DC 03/17/17 18:14 75 ML Sodium Chloride 1,000 ml @ 100 mls/hr Q10H 03/17/17 17:13 03/18/17 03:12 03/17/17 17:28 100 MLS/HR Allergies Allergies Allergies Coded Allergies Type Severity Reaction Last Updated Verified latex Allergy Intermediate 02/04/17 Yes Physical Exam Physical Exam Constitutional: Well developed, well nourished, no acute distress, non-toxic appearance. [] HENT: Normocephalic, atraumatic, bilateral external ears normal, oropharynx moist, no oral exudates, nose normal. [] Eyes: PERRLA, EOMI, conjunctiva normal, no discharge. [] Neck: Normal range of motion, no tenderness, supple, no stridor. [] Cardiovascular:Heart rate regular rhythm, no murmur [] Lungs & Thorax: Bilateral breath sounds clear to auscultation [] Abdomen: Bowel sounds normal, soft, no tenderness, no masses, no pulsatile masses. [] Skin: Warm, dry, no erythema, no rash. [] Back: No tenderness, no CVA tenderness. [] Extremities: No tenderness, no cyanosis, no clubbing, ROM intact, no edema. [] Neurologic: Alert and oriented X 3, normal motor function, normal sensory function, no focal deficits noted. [] Psychologic: Affect normal, judgement normal, mood normal. [] Current Patient Data Vital Signs Vital Signs Date Time Temp Pulse Resp B/P (MAP) Pulse Ox O2 Delivery O2 Flow Rate FiO2 03/17/17 17:53 16 98 Room Air 03/17/17 17:00 98.0 79 133/81 (98) 98.0 Lab Values Laboratory Tests Test 03/17/17 17:13 White Blood Count 8.6 x10^3/uL (4.0-11.0) Red Blood Count 4.56 x10^6/uL (3.50-5.40) Hemoglobin 13.6 g/dL (12.0-15.5) Hematocrit 40.0 % (36.0-47.0) Mean Corpuscular Volume 88 fL (79-100) Mean Corpuscular Hemoglobin 30 pg (25-35) Mean Corpuscular Hemoglobin Concent 34 g/dL (31-37) Red Cell Distribution Width 13.5 % (11.5-14.5) Platelet Count 257 x10^3/uL (140-400) Neutrophils (%) (Auto) 68 % (31-73) Lymphocytes (%) (Auto) 24 % (24-48) Monocytes (%) (Auto) 5 % (0-9) Eosinophils (%) (Auto) 2 % (0-3) Basophils (%) (Auto) 1 % (0-3) Neutrophils # (Auto) 5.9 x10^3uL (1.8-7.7) Lymphocytes # (Auto) 2.0 x10^3/uL (1.0-4.8) Monocytes # (Auto) 0.4 x10^3/uL (0.0-1.1) Eosinophils # (Auto) 0.2 x10^3/uL (0.0-0.7) Basophils # (Auto) 0.1 x10^3/uL (0.0-0.2) Sodium Level 141 mmol/L (136-145) Potassium Level 4.0 mmol/L (3.5-5.1) Chloride Level 105 mmol/L (98-107) Carbon Dioxide Level 25 mmol/L (21-32) Anion Gap 11 (6-14) Blood Urea Nitrogen 9 mg/dL (7-20) Creatinine 0.8 mg/dL (0.6-1.0) Estimated GFR (Cockcroft-Gault) 79.4 BUN/Creatinine Ratio 11 (6-20) Glucose Level 108 mg/dL (70-99) H Calcium Level 9.1 mg/dL (8.5-10.1) Total Bilirubin 0.2 mg/dL (0.2-1.0) Aspartate Amino Transferase (AST) 12 U/L (15-37) L Alanine Aminotransferase (ALT) 11 U/L (14-59) L Alkaline Phosphatase 70 U/L (46-116) Troponin I Quantitative < 0.017 ng/mL (0.000-0.055) Total Protein 7.1 g/dL (6.4-8.2) Albumin 3.4 g/dL (3.4-5.0) Albumin/Globulin Ratio 0.9 (1.0-1.7) L Laboratory Tests 03/17/17 17:13 Laboratory Tests 03/17/17 17:13 EKG EKG [] Radiology/Procedures Radiology/Procedures [] Course & Med Decision Making Course & Med Decision Making Pertinent Labs and Imaging studies reviewed. (See chart for details) [] Dragon Disclaimer Dragon Disclaimer This electronic medical record was generated, in whole or in part, using a voice recognition dictation system. Departure Departure Impression: Primary Impression: Pleurisy Additional Impressions: Anxiety Nonspecific chest pain Disposition: 01 HOME, SELF-CARE Condition: IMPROVED Referrals: TERRI SANDOVAL MD (PCP) Patient Instructions: Anxiety and Panic Attacks, Pleurisy Additional Instructions: You are suffering from pleuritic chest pain today. This is typically from irritation of the lung lining. It tends to be a sharp pain worse with breathing. You did not have any evidence of a dangerous cause for your pleurisy today. Take ibuprofen 800 mg every 6 hours as needed for pain. You can also take Tylenol if necessary. Your condition today was complicated by your anxiety. Continue Xanax as previously prescribed and follow up with your doctor tomorrow. Return immediately for new severe or worsening symptoms Problem Qualifiers SUSAN GREER MD Mar 17, 2017 19:33
--- NOTE | 2017-03-18 06:17 | EKG ---
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
--- NOTE | 2017-03-18 07:41 | RAD ---
Portable chest, 03/17/2017: History: Left-sided chest and flank pain Comparison is made to a study from 01/27/2017. The heart size is normal. The lungs are clear. There is no evidence of pleural fluid or pneumothorax. IMPRESSION: No significant abnormality is detected.
== END 2017-03-17 20:00 | disposition home or self-care (01) ==
LOC: ER 16:59
DX: R09.1 Pleurisy (principal); F41.9 Anxiety disorder, unspecified; M19.90 Unspecified osteoarthritis, unspecified site; J45.909 Unspecified asthma, uncomplicated; F31.9 Bipolar disorder, unspecified; E03.9 Hypothyroidism, unspecified; I25.2 Old myocardial infarction; G89.29 Other chronic pain; Z90.710 Acquired absence of both cervix and uterus; Z91.040 Latex allergy status
CPT/HCPCS: 36415; 71010; 71275; 80053; 84484; 85027; 93005; 96360; 96361; 99285; J7030; Q9967

== ENCOUNTER → 2018-08-09 | Outpatient (CLI) | payer OTHER ==
[~2018-08-09] MED LIST changes: -LAMO200T PO; +LAMO200T2 PO; +TRAZ-86 PO; -TRAZ100T12 PO
--- NOTE | 2018-08-09 17:45 | KCIC ---
MRI of the lumbar spine without contrast 08/09/2018 CLINICAL HISTORY: Low back pain which radiates down the left leg. TECHNIQUE: Unenhanced T1-weighted and T2-weighted sagittal and axial and inversion recovery sagittal images of the lumbar spine were obtained. FINDINGS: Images from the study are degraded by patient motion. Comparison is made to radiographs of the lumbar spine dated 03/23/2018. Minimal S-shaped curvature of the thoracolumbar spine is seen. The morphology and signal characteristics of all of the disks of the lumbar spine are within normal limits. The marrow signal of the visualized bony structures is within normal limits. The conus medullaris is within normal limits in morphology, position, and signal characteristics. On the axial images throughout the mid and lower lumbar disc spaces, the changes of degenerative disc disease are seen. These consist of minimal to mild generalized disc bulges, degenerative changes involving the facet joints and mild to moderate ligamentum flavum hypertrophy. These findings do not result in significant central spinal canal or neural foraminal stenosis at any level. IMPRESSION: The changes of relatively mild degenerative disc disease are seen involving the lumbar spine. These findings do not result in significant central spinal canal or neural foraminal stenosis at any level. Electronically signed by: Zbigniew Gayle MD (08/09/2018 5:41 PM) [facility]
== END | disposition home or self-care (01) ==
LOC: KCIC MRI 13:45
PROVIDERS: ATTEND Family Medicine
DX: M51.36 Other intervertebral disc degeneration, lumbar region (principal)
CPT/HCPCS: 72148

== ENCOUNTER → 2019-02-15 | Outpatient (CLI) | payer OTHER ==
[~2019-02-15] MED LIST changes: +ALBU2.5V8 IH; -PROAIR HFA8.5 GM IH
--- NOTE | 2019-02-15 10:30 | RAD ---
Ankle-brachial indices, 02/15/2019: HISTORY: Numbness, smoking history Resting RUDDY measurements were obtained. The right RUDDY is 1.11 while the left RUDDY is 1.05. These values are in the normal range IMPRESSION: Normal resting RUDDY measurements. Electronically signed by: Joel Rao MD (02/15/2019 10:27 AM) [facility]
== END | disposition home or self-care (01) ==
LOC: US 14:05
PROVIDERS: ATTEND Family Medicine
DX: R20.0 Anesthesia of skin (principal); Z87.891 Personal history of nicotine dependence; Z85.3 Personal history of malignant neoplasm of breast
CPT/HCPCS: 93922

== ENCOUNTER → 2021-07-02 | Outpatient (CLI) | payer OTHER ==
[~2021-07-02] MED LIST changes: -LAMO200T2 PO; +LAMO200T6 PO; +TRAZ-123 PO; -TRAZ-86 PO
--- NOTE | 2021-07-02 13:21 | KCIC ---
Exam Date: 07/02/2021 11:00 AM MRI RIGHT LOWER EXTREMITY JOINT WITHOUT Indication: Reason: PAIN IN RIGHT KNEE / Spl. Instructions: / History: Chronic anterior knee pain, s welling, popping.. TECHNIQUE: Routine multiplanar MR imaging of the knee was performed without contrast. FINDINGS: Degenerative signal is seen in the body of the medial meniscus without discrete meniscal tear. The lateral meniscus is intact and within normal limits for age. The anterior cruciate ligament, posterior cruciate ligament, medial collateral ligament, and lateral collateral ligament complex are intact. Patellofemoral extensor mechanism and popliteus tendon are w ithin normal limits. Tricompartment partial thickness chondral loss is noted, most prominent in the medial compartment. N o large full-thickness chondral defects are identified. Bone marrow demonstrates benign signal on all sequences. No acute fracture is seen. Small tricompar tment osteophytes are noted. There is a small joint effusion. There is no popliteal cyst. IMPRESSION: Degenerative signal noted in the medial meniscus without discrete meniscal tear. Intact lateral meni scus. Tricompartment partial thickness chondral loss noted. No large full-thickness chondral defects are i dentified. Electronically signed by: Joey Sargent MD (07/02/2021 1:18 PM) [id number]
== END ==
LOC: KCIC MRI 09:37
PROVIDERS: ATTEND Orthopaedic Surgery
DX: M25.461 Effusion, right knee (principal)
CPT/HCPCS: 73721

== ENCOUNTER → 2021-08-05 | Outpatient (CLI) | payer OTHER ==
[2021-08-05 09:33] LABS: BASO % 1 % (0-3); EOS # 0.2 x10^3/uL (0.0-0.7); EOS % 4 % (0-3); HEMATOCRIT 39.7 % (36.0-47.0); HEMOGLOBIN 13.2 g/dL (12.0-15.5); LYMPH # 0.9 x10^3/uL (1.0-4.8); LYMPH % 18 % (24-48); MEAN CORPUSCULAR HEMOGLOBIN 30 pg (25-35); MEAN CORPUSCULAR HGB CONC 33 g/dL (31-37); MEAN CORPUSCULAR VOLUME 91 fL (79-100); MONO # 0.4 x10^3/uL (0.0-1.1); MONO % 7 % (0-9); NEUT # 3.6 x10^3/uL (1.8-7.7); NEUT % 71 % (31-73); PLATELET COUNT 262 x10^3/uL (140-400); RED BLOOD COUNT 4.37 x10^6/uL (3.50-5.40); RED CELL DISTRIBUTION WIDTH 14.3 % (11.5-14.5); WHITE BLOOD COUNT 5.1 x10^3/uL (4.0-11.0)
[2021-08-05 09:48] LABS: ALBUMIN 3.6 g/dL (3.4-5.0); CALCIUM 8.4 mg/dL (8.5-10.1); CREATININE 0.7 mg/dL (0.6-1.0); GFR 90.5; POTASSIUM 3.6 mmol/L (3.5-5.1)
[2021-08-05 10:07] LABS: PROTHROMBIN TIME PATIENT 11.8 SEC (11.7-14.0)
--- NOTE | 2021-08-05 11:44 | EKG ---
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
[2021-08-06 01:09] LABS: HEMOGLOBIN A1C 5.2 % (4.8-5.6)
== END ==
LOC: SURGPAT 11:52
PROVIDERS: ATTEND Orthopaedic Surgery
DX: Z01.818 Encounter for other preprocedural examination (principal); M17.0 Bilateral primary osteoarthritis of knee
CPT/HCPCS: 36415; 80048; 82040; 82306; 83036; 85025; 85610; 85651; 85730; 87641; 93005

== ENCOUNTER → 2021-08-15 | Outpatient (CLI) | payer OTHER ==
[2021-08-08 17:56] VITALS: BP 135/98
[~2021-08-15] MED LIST changes: +ALBU2.5V14 NEB; +ASPI1TAB31 PO; +BUTA1CAP5 PO; +EREN70AU2 SQ; +NICO1PAT25 TD; +OXYB5TAB10 PO; +OXYC-326 PO
== END ==
LOC: LAB 10:48
PROVIDERS: ATTEND Orthopaedic Surgery
DX: M17.0 Bilateral primary osteoarthritis of knee (principal); Z01.812 Encounter for preprocedural laboratory examination; Z20.822 Contact with and (suspected) exposure to COVID-19
CPT/HCPCS: U0003; U0005

== ENCOUNTER 2021-08-19 07:30 | Observation (INO) | payer OTHER ==
[2021-08-08 17:56] VITALS: BP 135/98
[~2021-08-19] VITALS: Ht 165.1 cm; Wt 119.0 kg
[~2021-08-19 07:30] MED LIST changes: +ACETAMINOPHEN 500 MG TABLET PO PRN; +GABAPENTIN 300 MG CAPSULE. PO PRN; +MELOXICAM 7.5 MG TABLET PO PRN; -OXYC-326 PO; +TRANEXAMIC ACID 1,000 MG in IV NS 50ML -- 1ST BAG INJ ONE; +TV=62ml MORPHINE 5 MG, KETOROLAC 30 MG, ROPIV, EPI INT ART ONE
[2021-08-19] MEDS ORDERED: TRANEXAMIC ACID 1,000 MG in IV NS 50ML -- 2ND BAG INJ ONE (08:00)
[2021-08-19 08:12] VITALS: BP 107/59
[2021-08-19] MEDS: IV RINGERS,LACTATED 1000ML 1,000 ML IV SCH ×2 (08:29→21:50)
[2021-08-19] MEDS ORDERED: ROCURONIUM 50 MG/5 ML VIAL. ONE (09:58)
[2021-08-19] MEDS ORDERED: TRANEXAMIC ACID in NS IVPB 100 ML ONE (10:32)
[2021-08-19] MEDS ORDERED: VANCOMYCIN 1 GM VIAL. ONE (10:33)
[2021-08-19] MEDS ORDERED: CALCIUM CARBONATE 500 MG TAB.CHEW PO PRN (11:15)
[2021-08-19] MEDS ORDERED: METOCLOPRAMIDE HCL 10 MG/2 ML VIAL. IVP PRN (11:15)
[2021-08-19] MEDS ORDERED: 0.9 % SODIUM CHLORIDE 10 ML DISP.SYRIN. IV PRN (11:15)
[2021-08-19] MEDS ORDERED: DEXTROSE 50% 25 GM / 50ML DISP.SYRIN. IV PRN (11:15)
[2021-08-19] MEDS ORDERED: ZOLPIDEM 5 MG TABLET. PO PRN (11:15)
[2021-08-19] MEDS ORDERED: fentaNYL PF VIAL 100 MCG/2 ML VIAL IVP PRN ×2 (11:15→13:30)
[2021-08-19] MEDS ORDERED: diphenhydrAMINE 50 MG/ML VIAL IVP PRN (11:15)
[2021-08-19] MEDS ORDERED: HYDROmorphone 2 MG/ML VIAL ONE (11:55)
[2021-08-19] MEDS: ONDANSETRON ODT 4 MG TAB.RAPDIS. PO SCH ×2 (12:00→18:00)
[2021-08-19] MEDS: IV NORMAL SALINE 1000ML BAG 1,000 ML IV SCH (12:00)
[2021-08-19] MEDS: ONDANSETRON PF 4 MG/2 ML VIAL. IVP SCH ×2 (12:00→18:06)
[2021-08-19] MEDS ORDERED: GLYCOPYRROLATE 1 MG/5 ML VIAL. ONE (12:40)
[2021-08-19] MEDS ORDERED: PHENYLEPHRINE in 0.9% NACL PF 1 MG/10 ML SYRINGE. IV ONE (12:41)
[2021-08-19] MEDS ORDERED: NEOSTIGMINE 10 MG/10 ML VIAL. ONE (12:42)
[2021-08-19] MEDS ORDERED: SEVOFLURANE > 120 MINUTES. IH ONE (12:58)
--- NOTE | 2021-08-19 13:07 | PDOC1 ---
History and Physical Date of Service: DOS: DATE: 08/19/21 TIME: 13:07 Chief Complaint: Chief Complain: Status post right TKA History of Present Illness: HPI: Patient is a 46-year-old female who is here today for a right total knee arthroplasty. Patient has severe degenerative OA in this knee. Evaluated the patient in the PACU she was resting in bed. Did appear to have a grimace a few times of pain especially when her leg was being moved. Admit to the hospital. Home meds reviewed will resume as indicated Past Medical/Surgical History: PMH/PSH: Migraines, bladder spasms Allergies: Allergies: Coded Allergies: latex (Verified Allergy, Intermediate, 02/04/17) doxorubicin (Verified Allergy, Unknown, Unknown, 08/08/21) Uncoded Allergies: NEUTROGENA PRODUCTS (Adverse Reaction, Unknown, Unknown, 08/08/21) Family History: Family History: None known from patient Social History: Social History: No alcohol tobacco drug use Current Medications: Current Medications Current Medications Cefazolin Sodium/ Dextrose 50 ml @ 100 mls/hr 1X PREOP PRN IV PRIOR TO PROC EDURE Last administered on 08/19/21at 11:20; Start 08/19/21 at 06:00; Stop 08/19/21 at 18:00 Morphine Sulfate 5 mg/Ketorolac Tromethamine 30 mg/Ropivacaine 60 ml/Epinephrine HCl 0.5 mg/ Miscellaneous 63 ml @ 63 mls/hr 1X PERIOP ONCE INT ART Last admini stered on 08/19/21at 10:22; Start 08/19/21 at 06:00; Stop 08/19/21 at 06:59; Status DC Meloxicam (Mobic) 15 mg 1X PREOP PRN PO PRIOR TO PROCEDURE Last administered on 08/19/21at 08:30; Start 08/19/21 at 06:00; Stop 08/19/21 at 18:00 Gabapentin (Neurontin) 600 mg 1X PREOP PRN PO PRIOR TO PROCEDURE Last administered on 08/19/21at 08:30; Start 08/19/21 at 06:00; Stop 08/19/21 at 18:00 Acetaminophen (Tylenol) 1,000 mg 1X PREOP PRN PO PRIOR TO PROCEDURE Last administered on 08/19/21at 08:30; Start 08/19/21 at 06:00; Stop 08/19/21 at 18:00 Tranexamic Acid 50 ml @ 50 mls/hr 1X PERIOP ONCE INJ Last administered on 08/19/21at 10:22; Start 08/19/21 at 06:00; Stop 08/19/21 at 06:59; Status DC Tranexamic Acid 50 ml @ 50 mls/hr 1X PERIOP ONCE INJ ; Start 08/19/21 at 08:00; Stop 08/19/21 at 08:59; Status DC Ringer's Solution 1,000 ml @ 75 mls/hr [id number] IV Last administered on 08/19/21at 08:29; Start 08/19/21 at 08:30 Rocuronium [place] (Zemuron) 50 mg STK-MED ONCE .ROUTE ; Start 08/19/21 at 09:58; Stop 08/19/21 at 09:58; Status DC Tranexamic Acid 100 ml @ As Directed STK-MED ONCE .ROUTE ; Start 08/19/21 at 10:32; Stop 08/19/21 at 10:33; Status DC Vancomycin HCl (Vancomycin) 1 gm STK-MED ONCE .ROUTE ; Start 08/19/21 at 10:33; Stop 08/19/21 at 10:33; Status DC Morphine Sulfate (Morphine Sulfate) 2 mg PRN Q1HR PRN IVP PAIN; Start 08/19/21 at 11:15 Fentanyl Citrate (Fentanyl 2ml Vial) 25 mcg PRN Q1HR PRN IVP PAIN, 2nd CHOICE; Start 08/19/21 at 11:15 Diphenhydramine HCl (Benadryl) 25 mg PRN Q6HRS PRN IVP ITCHING; Start 08/19/21 at 11:15 Multivitamins (Thera M Plus) 1 tab DAILY PO ; Start 08/20/21 at 09:00 Senna/Docusate Sodium (Senna Plus) 1 tab DAILY PO ; Start 08/20/21 at 09:00 Ferrous Sulfate (Feosol) 325 mg BIDWMEALS PO ; Start 08/19/21 at 17:00 Sodium Chloride 1,000 ml @ 40 mls/hr Q24H IV ; Start 08/19/21 at 12:00 Metoclopramide HCl (Reglan Vial) 10 mg PRN Q4HRS PRN IVP NAUSEA/VOMITING, 3rd CHOICE; Start 08/19/21 at 11:15 Magnesium Hydroxide (Milk Of Magnesia) 2,400 mg 1X PRN PRN PO CONSTIPATION; Start 08/20/21 at 06:00; Stop 08/21/21 at 05:59 Bisacodyl (Dulcolax Supp) 10 mg 1X PRN PRN ND CONSTIPATION; Start 08/20/21 at 16:00; Stop 08/21/21 at 15:59 Zolpidem Tartrate (Ambien) 5 mg PRN QHS PRN PO INSOMNIA, MAY REPEAT IN 1HR; Start 08/19/21 at 11:15 Calcium Carbonate/ Glycine (Tums) 500 mg PRN QID PRN PO INDIGESTION; Start 08/19/21 at 11:15 Sodium Chloride (Normal Saline Flush) 10 ml QSHIFT PRN IV AFTER MEDS AND BLOOD DRAWS; Start 08/19/21 at 11:15 Acetaminophen (Tylenol) 1,000 mg Q6H PO ; Start 08/20/21 at 09:00 Ondansetron HCl (Zofran) 4 mg Q6HRS IVP ; Start 08/19/21 at 12:00; Stop 08/20/21 at 06:01 Ondansetron HCl (Zofran Odt) 4 mg Q6HRS PO ; Start 08/19/21 at 12:00; Stop 08/20/21 at 06:01 Ondansetron HCl (Zofran) 4 mg PRN Q6HRS PRN IVP Nausea/vomiting, 1st choice; Start 08/20/21 at 12:00 Ondansetron HCl (Zofran Odt) 4 mg PRN Q6HRS PRN PO Nausea/vomiting, 1st choice; Start 08/20/21 at 12:00 Oxycodone HCl (Roxicodone) 5 mg PRN Q4HRS PRN PO Pain score 4-6; Start 08/19/21 at 11:15 Dextrose (Dextrose 50%-Water Syringe) 12.5 gm PRN Q15MIN PRN IV SEE COMMENTS; Start 08/19/21 at 11:15 Cefazolin Sodium/ Dextrose 50 ml @ 100 mls/hr Q6H IV ; Start 08/19/21 at 17:30; Stop 08/20/21 at 05:59 Hydromorphone HCl (Dilaudid) 2 mg STK-MED ONCE .ROUTE ; Start 08/19/21 at 11:55; Stop 08/19/21 at 11:55; Status DC Glycopyrrolate (Robinul) 1 mg STK-MED ONCE .ROUTE ; Start 08/19/21 at 12:40; Stop 08/19/21 at 12:40; Status DC Phenylephrine HCl (PHENYLEPHRINE in 0.9% NACL PF) 1 mg STK-MED ONCE IV ; Start 08/19/21 at 12:41; Stop 08/19/21 at 12:41; Status DC Neostigmine Methylsulfate (Bloxiverz) 10 mg STK-MED ONCE .ROUTE ; Start 08/19/21 at 12:42; Stop 08/19/21 at 12:43; Status DC Sevoflurane (Ultane) 90 ml STK-MED ONCE IH ; Start 08/19/21 at 12:58; Stop 08/19/21 at 12:58; Status DC Active Scripts Active Reported Oxybutynin Chloride 5 Mg Tablet 15 Mg PO DAILY Albuterol Sulfate Conc Neb Soln (Albuterol Sulfate) 2.5 Mg/0.5 Ml Vial.neb 2.5 Mg NEB PRN Q4-6HRS PRN Aimovig Autoinjector (Erenumab-Aooe) 140 Mg/1 Ml Auto.injct 140 Mg SQ QMONTH Yhqyxwgxzx-Rmc-Yvhoqijw Cap (Butalbital/Aspirin/Caffeine) 1 Each Capsule 1 Each PO PRN DAILY PRN Excedrin Migraine Caplet (Aspirin/Acetaminophen/Caffeine) 1 Each Tablet 2 Each PO PRN DAILY PRN NICODERM CQ 14mg (Nicotine) 1 Each Patch.td24 1 Patch TD PRN DAILY PRN Levothyroxine Sodium 150 Mcg Tablet 88 Mcg PO DAILYAC Proair Hfa Inhaler (Albuterol Sulfate) 8.5 Gm Hfa.aer.ad 2 Puff IH PRN Q4-6HRS ROS: Review of Systems Review of System Patient too lethargic to complete full review of systems Physical Exam: Vital Signs: Vital Signs Date Time Temp Pulse Resp B/P (MAP) Pulse Ox O2 Delivery O2 Flow Rate FiO2 08/19/21 08:16 97.6 84 18 107/59 100 Room Air 97.6 Physcial Exam: GEN: Lethargic HEENT: Normal cephalic, atraumatic, external auditory canals are patent EYES: Extraocular muscles are intact, pupil are equally round and reactive to light and accommodation MUSCULOSKELETAL: Well developed , well nourished, range of motion limited by pain ENDOCRINE: No thyromegaly was palpated LYMPHATICS: No cervical chain or axillary nodes were noted HEMATOPOIETIC: No bruising NECK: Supple, no JVD, no thyromegaly was noted LUNGS: Clear to auscultation in all lung gamez without rhonchi or wheezing HEART: RRR, S1, S2 present. Peripheral pulses intact, no obvious murmurs noted ABDOMEN: Soft, nontender. Positive bowel sounds, no organomegaly, normal bowel sounds EXTREMITIES: Without clubbing, cyanosis, or edema. Pedal pulses intact. Negative Homans sign NEUROLOGIC: Normal speech and tone. A&O x 3, moves all extremities, no obvious focal deficits PSYCHIATRIC: Normal affect, normal mood. Stable SKIN: No ulcerations or rashes, good skin turgor, no jaundice VASCULAR: Good capillary refill, neurovascular bundle appears to be intact Assessment/Plan Assessment/Plan Status post right total knee, history of migraines bladder spasms asthma -Underwent right TKA for severe DJD -Admit to hospital -As needed pain control -Home meds resumed as indicated -Weightbearing per Ortho. PT OT -DVT prophylaxis when able -Advance diet as tolerated. Justifications for Admission Other Justification JILLIAN LYNCH MD Aug 19, 2021 13:07
[2021-08-19] MEDS ORDERED: HYDROmorphone 2 MG/ML VIAL IVP PRN (13:30)
[2021-08-19] MEDS ORDERED: IV RINGERS,LACTATED 1000ML 1,000 ML IV SCH (13:30)
[2021-08-19] MEDS ORDERED: MORPHINE SULFATE 2 MG/ML INJ. IVP PRN (13:30)
[2021-08-19] MEDS ORDERED: PROCHLORPERAZINE 10 MG/2 ML VIAL. IVP PRN (13:30)
[2021-08-19] MEDS ORDERED: PROCHLORPERAZINE 10 MG/2 ML VIAL. ONE (13:30)
--- NOTE | 2021-08-19 13:34 | OP ---
DATE OF SURGERY: 08/19/2021 PREOPERATIVE DIAGNOSIS: Degenerative joint disease, right knee. POSTOPERATIVE DIAGNOSIS: Degenerative joint disease, right knee. PROCEDURE: Right total knee arthroplasty. SURGEON: Gómez Guzman Jr, DO COMMUNICATION PROFESSOR: Nii Dubois. ANESTHESIA: General. COMPLICATIONS: None. ESTIMATED BLOOD LOSS: 50 mL. COMPONENTS: Size 5 femur, size 4 tibia, 9 mm polyethylene tibial insert and a 29 patella. DESCRIPTION OF PROCEDURE: The patient was taken to the operative suite, given a general anesthetic. The right lower extremity was then prepped and draped in a sterile fashion. Incision was made through skin and subcutaneous tissues down to the extensor mechanism. Superficial bleeding was coagulated using a Bovie knife and then a medial parapatellar incision was then performed. The patella was then everted, measured and cut to the appropriate size. The drill holes were made through for the patellar component through the guide. Attention was then directed to the femur. The drill was placed in the distal femur. The intramedullary guide was then placed to the appropriate depth and then the distal cutting guide was affixed. The distal cut was then made in the femur. Then, attention was then directed to the distal cut and after this was marked for rotation, the 4-in-1 guide was then placed on the distal femoral cut, held with pins and the anterior, posterior and chamfer cuts were made. Attention was then directed to the tibia. After removal of the medial and lateral meniscal remnants, the external tibial guide was placed in appropriate position and orientation and then a proximal tibial resection was undertaken. Trial components were placed, the size 4 tibia was noted to be most appropriate size and this did track appropriately. No instability was noted throughout the arc of motion. Full extension was noted all the way up to 125 degrees of flexion. The drill holes were made for the distal femoral component and then the keel was placed for the tibial trial for the depth of the tibia and for marking of rotation. This was all subsequently removed and then this was punched also and drilled on the tibial side of the joint. The knee was then thoroughly irrigated and suctioned dry as was throughout the case, but this was overabundance of irrigation. Tibial component was impacted into place, followed by the femoral component. Following this, the tibial poly component was then impacted into the tibia noted to be stable and the patella was then affixed to the backside of the patella and noted to be secured as well. This was noted to have good range of motion and good stability in all ranges of motion throughout the arc of plain. Then, the medial parapatellar incision was then closed in a running fashion using a Stratafix. The superficial tissue and skin was reapproximated. It should be noted that local and mixture was noted to be placed within the capsule of the knee throughout prior to closure. Tourniquet was deflated with good return of pulses and capillary refill. The patient was then taken from the operative bed to the postoperative bed, taken to the PACU in stable condition. CASTILLO DR: Mustapha TID: [id number]
[2021-08-19] MEDS: fentaNYL PF VIAL 100 MCG/2 ML VIAL IVP PRN ×2 (13:37→14:25)
--- NOTE | 2021-08-19 14:02 | RAD ---
Two-view right knee dated 08/19/2021. COMPARISON: None. CLINICAL INDICATION: Postop knee arthroplasty. FINDINGS: 2 views the right knee show interval total knee arthroplasty. Femoral, patellar and tibial components are intact. No periprosthetic fracture or malalignment. There is overlying soft tissue swelling and soft tissue gas. IMPRESSION:. Status post right knee arthroplasty. Electronically signed by: Khang Forrester MD (08/19/2021 1:59 PM) [facility]
--- NOTE | 2021-08-19 15:26 | PREOP HP ---
DATE OF SERVICE: 08/19/2021 PREOPERATIVE HISTORY AND PHYSICAL REASON FOR PREOP: Degenerative joint disease, right knee, significant right knee pain. HISTORY OF PRESENT ILLNESS: The patient was evaluated previously and was noted to have injuries to the meniscus, but most importantly had degenerative changes with the knee, it is in the patellofemoral compartment as well as the medial compartment of the knee. A very long discussion was undertaken with her at that time; however, due to her not having significant relief with conservative treatment options, she wished to undergo a total knee arthroplasty. PAST MEDICAL HISTORY: Remarkable for hyperlipidemia, chronic pain, asthma, depression, migraine headaches, COPD, insomnia, sleep apnea, anxiety disorder, fibromyalgia, arthritis, mood disorders, bipolar disorder, asthma, acid reflux, uterine cancer, breast cancer, and chemotherapy. PAST SURGICAL HISTORY: Carpal tunnel release with tendon repair, tubal ligation, tonsillectomy, adenoidectomy, right elbow surgery, Kevin fundoplication, cubital tunnel release with ulnar nerve decompression, hysterectomy and breast lumpectomy. FAMILY HISTORY: Remarkable for heart disease, hypertension as well as bipolar disorder and diabetes. SOCIAL HISTORY: The patient is a current smoker with 15-20 year tobacco history. MEDICATIONS: Significant and numerous and are listed on the previous H and P and were reviewed and are continuing to be the same medications as before. MEDICATION ALLERGIES: LATEX ONLY. PHYSICAL EXAMINATION: She is 65.5 inches tall, 262 pounds. She has a knee joint effusion today with pain on palpation of the medial more than lateral compartments, although both are painful. Positive Apley's test of the medial and lateral compartments, apprehension at the patellofemoral joint. Today, she has range of motion of 5 degrees up to 120 degrees, pain anteriorly and medially throughout the arc of motion with proper tracking of the patellofemoral joint. No other significant abnormalities with the examination today. IMPRESSION: Osteoarthritis, right knee. PLAN: At this time, she wishes to undergo a total knee arthroplasty; therefore, she has been medically cleared. We will get her set up as soon as possible in to the OR. She understands the risks, complications as well as benefits and expectations of surgery, postoperative protocol and followup. DELMA DR: Mustapha TID: [id number]
[2021-08-19] MEDS: FERROUS SULFATE 325 MG TABLET. PO SCH (17:00)
[2021-08-19 19:30] VITALS: BP 162/90
[2021-08-19] MEDS: MORPHINE SULFATE 2 MG/ML INJ. IVP PRN (20:44)
[2021-08-19 23:15] VITALS: BP 121/68
[2021-08-19] MEDS: oxyCODONE IR 5 MG TABLET PO PRN (23:21)
[2021-08-20 03:14] VITALS: BP 108/72
[2021-08-20] MEDS ORDERED: LEVOTHYROXINE 88 MCG TABLET PO SCH (06:00)
[2021-08-20] MEDS ORDERED: MAGNESIUM HYDROXIDE 2,400 MG/30 ML ORAL.SUSP. PO PRN (06:00)
[2021-08-20] MEDS: ONDANSETRON PF 4 MG/2 ML VIAL. IVP SCH ×2 (06:00)
[2021-08-20] MEDS: ONDANSETRON ODT 4 MG TAB.RAPDIS. PO SCH ×2 (06:00)
[2021-08-20] MEDS: MORPHINE SULFATE 2 MG/ML INJ. IVP PRN (06:37)
[2021-08-20 07:00] VITALS: BP 130/72
[2021-08-20] MEDS: FERROUS SULFATE 325 MG TABLET. PO SCH (07:31)
[2021-08-20] MEDS: ACETAMINOPHEN 500 MG TABLET PO SCH ×2 (07:31→13:55)
[2021-08-20] MEDS: oxyCODONE IR 5 MG TABLET PO PRN (07:32)
[2021-08-20] MEDS ORDERED: ASA/APAP/CAFFEINE 250/250/65MG TABLET. PO PRN (08:00)
[2021-08-20] MEDS ORDERED: BUTALB/APAP/CAFEIN 50/325/40MG TABLET. PO PRN (08:00)
[2021-08-20] MEDS ORDERED: ALBUTEROL SULFATE 2.5 MG/3 ML NEBU. INH PRN (08:00)
[2021-08-20] MEDS ORDERED: KETOROLAC 30 MG/ML VIAL. IVP ONE (08:30)
[2021-08-20] MEDS ORDERED: oxyCODONE/APAP 10/325 1 TAB TABLET PO PRN (08:30)
[2021-08-20] MEDS ORDERED: MORPHINE SULFATE 4 MG/ML INJ. IVP PRN (08:30)
--- NOTE | 2021-08-20 08:39 | PDOC ---
[employer] PROGRESS NOTE Date of Service DOS: DATE: 08/20/21 TIME: 08:35 Chief Complaint Chief Complaint severe OA with pain Status post right total knee, severe pain this AM migraines, BMI 43 bladder spasms asthma History of Present Illness History of Present Illness -Underwent right TKA for severe DJD was standing beside bed this AM, screaming in pain that her knee hurts and "wanting out of here" IV and PO meds had been given will give toradol, IV meds, small dose ativan, try to redirect cont in hospital care PT as able will increas the pain control -Weightbearing per Ortho. PT OT -DVT prophylaxis Vitals/I&O Vitals/I&O: Vital Signs Date Time Temp Pulse Resp B/P (MAP) Pulse Ox O2 Delivery O2 Flow Rate FiO2 08/20/21 07:32 96 Room Air 08/20/21 07:00 98.3 18 16 130/72 (91) 98.3 08/19/21 14:35 2 I & O 08/19/21 08/19/21 08/20/21 15:00 23:00 07:00 Intake Total 650 ml 2000 ml Output Total 50 ml 400 ml Balance 600 ml 1600 ml Physical Exam Physical Exam: agitated, upset, in pain General: severe distress Heart: Other Lungs: Clear Extremities: No clubbing, No edema, Normal pulses Skin: No significant lesion Comment Review of Relevant I have reviewed the following items sang (where applicable) has been applied. Medications: Current Medications Medications (Trade) Dose Ordered Sig/Daisy Route PRN Reason Start Time Stop Time Status Last Admin Dose Admin Morphine Sulfate (Morphine Sulfate) 2 mg PRN Q1HR PRN IVP PAIN 08/19/21 11:15 08/20/21 08:22 DC 08/20/21 06:37 Multivitamins (Thera M Plus) 1 tab DAILY PO 08/20/21 09:00 08/20/21 07:32 Senna/Docusate Sodium (Senna Plus) 1 tab DAILY PO 08/20/21 09:00 08/20/21 07:31 Ferrous Sulfate (Feosol) 325 mg BIDWMEALS PO 08/19/21 17:00 08/20/21 07:31 Acetaminophen (Tylenol) 1,000 mg Q6H PO 08/20/21 09:00 08/20/21 07:31 Ondansetron HCl (Zofran) 4 mg Q6HRS IVP 08/19/21 12:00 08/20/21 06:01 DC 08/19/21 18:06 Oxycodone HCl (Roxicodone) 5 mg PRN Q4HRS PRN PO Pain score 4-6 08/19/21 11:15 08/20/21 07:32 Cefazolin Sodium/ Dextrose 50 ml @ 100 mls/hr Q6H IV 08/19/21 17:30 08/20/21 05:59 DC 08/20/21 06:37 Levothyroxine Sodium (Synthroid) 88 mcg DAILY06 PO 08/20/21 06:00 08/20/21 06:37 Oxybutynin Chloride (Ditropan) 5 mg [id number] PO 08/20/21 09:00 08/20/21 07:31 Fentanyl Citrate (Fentanyl 2ml Vial) 50 mcg PRN Q5MIN PRN IVP MODERATE PAIN 4-6 08/19/21 13:30 08/20/21 13:29 08/19/21 14:25 Prochlorperazine Edisylate (Compazine) 5 mg PACU PRN PRN IVP NAUSEA, MRX1 08/19/21 13:30 08/20/21 13:29 08/19/21 13:37 Justifications for Admission Other Justification EDA WOLF MD Aug 20, 2021 08:39
[2021-08-20] MEDS ORDERED: POLYETHYLENE GLYCOL 3350 17 GM PACKET. PO PRN (08:45)
[2021-08-20] MEDS ORDERED: OXYBUTYNIN CHLORIDE 5 MG TABLET PO SCH (09:00)
[2021-08-20] MEDS ORDERED: SENNOSIDES/DOCUSATE 8.6/50MG TABLET. PO SCH (09:00)
[2021-08-20] MEDS ORDERED: MULTIVITAMIN with MINERAL TABLET. PO SCH (09:00)
--- NOTE | 2021-08-20 10:00 | NUR ---
Patient this morning during report was thrashing in pain, crying, and screaming out with morphine recently given. She was standing up on her own and not following any advice from this nurse/fellow staff on pain relief. This nurse brought in oxy PO and spoke to both Dr Velez and Dr Guzman in regards to the patients pain. New orders obtained and medications given. Worry for possible dislocation due extreme pain. XR ordered and was negative. Patients son arrived around 0900 and the patient has not yelled out or screamed in pain since her one time medication orders and the sons arrival. PRN pain medication being given as needed per request. Will continue to monitor.
[2021-08-20] MEDS: IV NORMAL SALINE 1000ML BAG 1,000 ML IV SCH (10:34)
[2021-08-20] MEDS: IV RINGERS,LACTATED 1000ML 1,000 ML IV SCH (10:34)
[2021-08-20 11:00] VITALS: BP 102/40
--- NOTE | 2021-08-20 11:16 | RAD ---
XR KNEE_RT 1-2 VIEWS History: Reason: recent surg, may be displaced / Spl. Instructions: / History: Technique: 2 views right knee Comparison: None. Findings: No dislocation. No acute fracture. Right total knee arthroplasty. Expected postoperative changes with soft tissue swelling and gas. Unchanged alignment compared to prior. Impression: 1. Right total knee arthroplasty, unchanged alignment compared to prior. Electronically signed by: Danilo Duran DO (08/20/2021 11:13 AM) [id number]
[2021-08-20] MEDS ORDERED: ONDANSETRON ODT 4 MG TAB.RAPDIS. PO PRN (12:00)
[2021-08-20] MEDS ORDERED: ONDANSETRON PF 4 MG/2 ML VIAL. IVP PRN (12:00)
[2021-08-20 12:03] LABS: HEMOGLOBIN 12.3 g/dL (12.0-15.5); RED BLOOD COUNT 3.99 x10^6/uL (3.50-5.40); RED CELL DISTRIBUTION WIDTH 14.5 % (11.5-14.5); WHITE BLOOD COUNT 8.5 x10^3/uL (4.0-11.0)
[2021-08-20 12:14] LABS: CALCIUM 8.7 mg/dL (8.5-10.1); POTASSIUM 3.5 mmol/L (3.5-5.1)
[2021-08-20] MEDS ORDERED: ASPIRIN ENTERIC COATED 325 MG TABLET.DR. PO SCH (12:30)
[2021-08-20 15:00] VITALS: BP 121/68
--- NOTE | 2021-08-20 15:00 | NUR ---
Patients son this morning asked staff if he could take Itzel outside for some fresh air and to smoke. Staff stated we did not allow smoking on the campus or for the patient to be taken outside without staff. Son stated understanding. Around 1300 this nurse went to go give patient some medications when it was noticed the patient was missing but all her belongings were still in the room. Computer Systems Administrator stated that "someone" just went by in an office chair very quickly towards the elevator. This nurse went searching for the patient but could not find her. Office chair was found by radiology and it was noted from a [facility] volunteer that they grabbed a wheelchair from radiology to wheel the patient outside at the outpatient entrance. Security was notified around 1312. Dr Guzman was notified around 1321. Dr Velez was notified around 1325. And the nurse gas meter repair supervisor Cristy was notified around 1330. Patient finally arrived back to the floor around 1345. This nurse educated the patient and her son that that is not appropriate behavior and she can not leave to do that again. Patient stated "well my son only listens to me, not you guys, so we went outside for fresh air". She stated she "had a few cigerettes but that was it". Drug UA ordered and patient notified per protocol for patients 45 minute elopement. Once patient was notified she finally stated, "just discharge me today, I am ready to leave this place". The medical team notified. Will follow up.
[2021-08-20] MEDS ORDERED: BISACODYL 10 MG SUPP.RECT. PR PRN (16:00)
[2021-08-20] MEDS ORDERED: OXYC-326 PO (16:09)
--- NOTE | 2021-08-20 16:10 | SNU/HH DC ---
DISCHARGE WITH HOME HEALTH DISCHARGE INFORMATION: Condition on Discharge: Stable CODE STATUS: Code Status: Full HOME HEALTH: Face to Face: I certify this patient is under my care and that I, or a nurse practitioner or physician's funeral home assistant working with me, had a face to face encounter that meets the physician face to face encounter requirements with this patient on []. Medical Complications: DJD Chcf For: Assess & Educate Safety RN For Eval/Treatment: Yes Physical Therapy For: Evalulation/Treatment Occupational Therapy For: Evaluation/Treatment Home Health Aide For: Self-care TURNER OFF For: Community Resources Pt Meets Homebound Status: Poor coordination w/ amb. POST DISCHARGE ORDERS: Activity Instructions for Disc: Activity as tolerated Bathing Instructions: Shower-keep dressing dry DIET AFTER DISCHARGE: Cardiac Wound/Incision Care: Keep wound/cast CDI TREATMENT/EQUIPMENT ORDERS: Adaptive Equipment Issued: None CERTIFICATION STATEMENT: Certification Statement: Certification Statement: Based on the above finding, I certify that this patient is confined to the home and needs intermittent long-term care, physical therapy and/or speech therapy, or continues to need occupational therapy.~ This patient is under my care, and I have initiated the establishment of the plan of care.~ This patient will be followed by myself or a community physician who will periodically review the plan of care. Home Meds Active Scripts Oxycodone/Apap 2.5-325 (PERCOCET 2.5-325 MG TABLET) 1 Each Tablet, 1 TAB PO PRN Q6HRS PRN for PAIN for 7 Days, #14 TAB 0 Refills Prov:CASTLE,NIAL K III DO 08/20/21 Reported Medications Oxybutynin Chloride (OXYBUTYNIN CHLORIDE) 5 Mg Tablet, 15 MG PO DAILY for BL;ADDER CONTROL, TAB 08/08/21 Albuterol Sulfate (ALBUTEROL SULFATE CONC NEB SOLN) 2.5 Mg/0.5 Ml Vial.neb, 2.5 MG NEB PRN Q4-6HRS PRN for WHEEZING, EACH 0 Refills 08/08/21 Erenumab-Aooe (Aimovig Autoinjector) 140 Mg/1 Ml Auto.injct, 140 MG SQ QMONTH for MIGRAINE PROVENTION, SYR 08/08/21 Butalbital/Aspirin/Caffeine (GFBQSPGUFM-WUO-GCXUYFTP CAP) 1 Each Capsule, 1 EACH PO PRN DAILY PRN for MIGERAINE HEADACHE, CAP 08/08/21 Aspirin/Acetaminophen/Caffeine (EXCEDRIN MIGRAINE CAPLET) 1 Each Tablet, 2 EACH PO PRN DAILY PRN for MIGRAINE HEADACHE, TAB 08/08/21 Nicotine (NICODERM CQ 14mg) 1 Each Patch.td24, 1 PATCH TD PRN DAILY PRN for SMOKING CESSATION, PATCH 08/08/21 Levothyroxine Sodium (LEVOTHYROXINE SODIUM) 150 Mcg Tablet, 88 MCG PO DAILYAC for THYROID SUPPLEMENT, #30 TAB 0 Refills 08/29/15 Albuterol Sulfate (PROAIR HFA INHALER) 8.5 Gm Hfa.aer.ad, 2 PUFF IH PRN Q4-6HRS, #1 INHALER 05/06/15 SARAH LIM III DO Aug 20, 2021 16:10
--- NOTE | 2021-08-20 16:20 | NUR ---
Went in to speak with the patient around 1545 after her therapy session. This nurse removed the patients IV and then went to administer her some PO medication. Patient quickly started yelling/screaming stating she wanted to leave this place. This nurse stated her discharge was in process. She stated she did not want to wait and signed AMA paperwork as her son was wheeling her out the door. The medical team was notified.
--- NOTE | 2021-08-21 09:46 | PDOC3 ---
Discharge Summary Visit Information Date of Admission: Aug 19, 2021 Date of Discharge: Aug 20, 2021 Final Diagnosis severe OA with pain severe pain migraines, BMI 43 bladder spasms asthma oppositional behavior or personality disorder NOS tobaccoism Brief Hospital Course Allergies Allergies Coded Allergies Type Severity Reaction Last Updated Verified latex Allergy Intermediate 02/04/17 Yes doxorubicin Allergy Unknown Unknown 08/08/21 Yes Uncoded Allergies Type Severity Reaction Last Updated Verified NEUTROGENA PRODUCTS Adverse Reaction Unknown Unknown 08/08/21 Vital Signs Vital Signs Date Time Temp Pulse Resp B/P (MAP) Pulse Ox O2 Delivery O2 Flow Rate FiO2 08/20/21 15:00 98.3 86 18 121/68 (85) 97 Room Air 98.3 Lab Results Laboratory Tests Test 08/20/21 11:29 White Blood Count 8.5 x10^3/uL (4.0-11.0) Red Blood Count 3.99 x10^6/uL (3.50-5.40) Hemoglobin 12.3 g/dL (12.0-15.5) Hematocrit 36.0 % (36.0-47.0) Mean Corpuscular Volume 90 fL (79-100) Mean Corpuscular Hemoglobin 31 pg (25-35) Mean Corpuscular Hemoglobin Concent 34 g/dL (31-37) Red Cell Distribution Width 14.5 % (11.5-14.5) Platelet Count 241 x10^3/uL (140-400) Sodium Level 136 mmol/L (136-145) Potassium Level 3.5 mmol/L (3.5-5.1) Chloride Level 98 mmol/L (98-107) Carbon Dioxide Level 30 mmol/L (21-32) Anion Gap 8 (6-14) Blood Urea Nitrogen 14 mg/dL (7-20) Creatinine 1.0 mg/dL (0.6-1.0) Estimated GFR (Cockcroft-Gault) 60.0 Glucose Level 96 mg/dL (70-99) Calcium Level 8.7 mg/dL (8.5-10.1) Laboratory Tests Test 08/20/21 11:29 White Blood Count 8.5 x10^3/uL (4.0-11.0) Red Blood Count 3.99 x10^6/uL (3.50-5.40) Hemoglobin 12.3 g/dL (12.0-15.5) Hematocrit 36.0 % (36.0-47.0) Mean Corpuscular Volume 90 fL (79-100) Mean Corpuscular Hemoglobin 31 pg (25-35) Mean Corpuscular Hemoglobin Concent 34 g/dL (31-37) Red Cell Distribution Width 14.5 % (11.5-14.5) Platelet Count 241 x10^3/uL (140-400) Sodium Level 136 mmol/L (136-145) Potassium Level 3.5 mmol/L (3.5-5.1) Chloride Level 98 mmol/L (98-107) Carbon Dioxide Level 30 mmol/L (21-32) Anion Gap 8 (6-14) Blood Urea Nitrogen 14 mg/dL (7-20) Creatinine 1.0 mg/dL (0.6-1.0) Estimated GFR (Cockcroft-Gault) 60.0 Glucose Level 96 mg/dL (70-99) Calcium Level 8.7 mg/dL (8.5-10.1) Brief Hospital Course Ms. Terry is a 46 old admit for knee pain -Underwent right TKA for severe DJD was standing beside bed this AM, screaming in pain that her knee hurts and "wanting out of here" IV and PO meds had been given, she went outside to smoke, acted strange, her son was here and he helped her out to smoke left AMA she talked about witchcraft and crystals and was very strange even when calm Discharge Information Condition at Discharge: Comment Follow Up: Weeks (ortho) Disposition/Orders: Other (AMA) Scheduled Albuterol Sulfate (Proair Hfa Inhaler) 8.5 Gm Hfa.aer.ad, 2 PUFF IH PRN Q4-6HRS, #1 (Reported) Entered as Reported by: RUTH DIXON on 05/06/15 1640 Last Taken: Unknown Dose on 08/07/21 Last Action: Continued on 08/20/21 1263 by EDA Lopezumab-Aooe (Aimovig Autoinjector) 140 Mg/1 Ml Auto.injct, 140 MG SQ QMONTH for MIGRAINE PROVENTION, (Reported) Entered as Reported by: OMARI RENAE on 08/08/21 0518 Last Taken: Unknown Dose on 08/18/21 Last Action: HELD on 08/19/211307 by JILLIAN LYNCH MD Levothyroxine Sodium (Levothyroxine Sodium) 150 Mcg Tablet, 88 MCG PO DAILYAC for THYROID SUPPLEMENT, #30 Ref 0 (Reported) Entered as Reported by: DEBI BERNABE [facility] on 08/29/15 1622 Last Taken: Unknown Dose on 08/19/21 0530 Last Action: Continued on 08/19/211307 by JILLIAN LYNCH MD Oxybutynin Chloride (Oxybutynin Chloride) 5 Mg Tablet, 15 MG PO DAILY for BL;ADDER CONTROL, (Reported) Entered as Reported by: OMARI RENAE on 08/08/211747 Last Taken: Unknown Dose on 08/19/21 0600 Last Action: Continued on 08/19/211307 by JILLIAN LYNCH MD Scheduled PRN Albuterol Sulfate (Albuterol Sulfate Conc Neb Soln) 2.5 Mg/0.5 Ml Vial.neb, 2.5 MG NEB PRN Q4-6HRS PRN for WHEEZING, Ref 0 (Reported) Entered as Reported by: OMARI RENAE on 08/08/211747 Last Taken: Unknown Dose on 08/07/21 Last Action: HELD on 08/19/211307 by JILLIAN LYNCH MD Aspirin/Acetaminophen/Caffeine (Excedrin Migraine Caplet) 1 Each Tablet, 2 EACH PO PRN DAILY PRN for MIGRAINE HEADACHE, (Reported) Entered as Reported by: OMARI RENAE on 08/08/211747 Last Taken: Unknown Dose on 08/17/21 Last Action: Continued on 08/20/21752 by EDA WOLF Butalbital/Aspirin/Caffeine (Tmvglrhqxn-Tsa-Icwcsmlu Cap) 1 Each Capsule, 1 EACH PO PRN DAILY PRN for MIGERAINE HEADACHE, (Reported) Entered as Reported by: OMARI RENAE on 08/08/211747 Last Taken: Unknown Dose on 08/18/21 Last Action: Converted on 08/20/21752 by EDA WOLF Nicotine (NICODERM CQ 14mg) 1 Each Patch.td24, 1 PATCH TD PRN DAILY PRN for SMOKING CESSATION, (Reported) Entered as Reported by: OMARI RENAE on 08/08/211747 Last Taken: Unknown Dose on 08/18/21 Last Action: HELD on 08/19/21 1308 by JILLIAN LYNCH MD Oxycodone/Apap 2.5-325 (Percocet 2.5-325 Mg Tablet) 1 Each Tablet, 1 TAB PO PRN Q6HRS PRN for PAIN for 7 Days, #14 Ref 0 Prescribed by: SARAH LIM on 08/20/21 1609 Patient Instructions Patient Instructions left AMA Justicifation of Admission Dx: Justifications for Admission: Justification of Admission Dx: N/A (not sure, elective surg admit) EDA WOLF MD Aug 21, 2021 09:45
--- NOTE | 2021-08-22 09:12 | PATHOLOGY ---
[facility] Accession Number: [id number] . 01 Material submitted: . knee - KNEE BONE AND TISSUE. Modifiers: right . 01 Clinical history: . OSTEOARTHRITIS R TOTAL KNEE ARTHROPLASTY . 02 Diagnosis: Segments of bone and soft tissue, right total knee arthroplasty: - Degenerative arthritis. (JPM:emma; 08/21/2021) MBR 08/21/2021 1630 Local . 02 Electronically signed: . Anthony Braden MD, Pathologist NPI- [id number] . 01 Gross description: . The specimen is received in formalin, labeled "Itzel Terry, knee bone and tissue". Received are multiple segments of bone, including the tibial plateau, with admixed soft tissue measuring 12.4 x 8.5 x 1.8 cm in aggregate dimensions. Meniscus is present. The articular surfaces are light foss to dark foss, smooth to eroded with no gross evidence of eburnation. The specimen is submitted representatively in cassette A1 to A2, following decalcification.([facility]; 08/20/2021) [facility] 08/21/2021 1629 Local . 02 Pathologist provided ICD-10: M17.11 . 02 CPT . 952806, [id number] Specimen Comment: A courtesy copy of this report has been sent to [phone] Specimen Comment: Report sent to Performed at: 01 [facility] [address] [facility] [address], [place] [id number] MD Marty Pacheco MD Phone: [phone] Performed at: 02 [facility] [address] [place], [place] [id number] MD Anthony Braden MD Phone: [phone]
== END 2021-08-20 16:00 | disposition left against medical advice (07) ==
LOC: SURG 07:30 → INTOOBSV 11:14 → 4 NORTH 11:14
PROVIDERS: ADMIT Student in an Organized Health Care Education/Training Program; ATTEND Orthopaedic Surgery
DX: M17.11 Unilateral primary osteoarthritis, right knee (principal); Z20.822 Contact with and (suspected) exposure to COVID-19; E78.5 Hyperlipidemia, unspecified; F31.9 Bipolar disorder, unspecified; F60.9 Personality disorder, unspecified; J44.9 Chronic obstructive pulmonary disease, unspecified; G43.909 Migraine, unspecified, not intractable, without status migrainosus; M79.7 Fibromyalgia; N32.89 Other specified disorders of bladder; F17.200 Nicotine dependence, unspecified, uncomplicated; Z68.41 Body mass index [BMI] 40.0-44.9, adult; Z85.3 Personal history of malignant neoplasm of breast; Z85.42 Personal history of malignant neoplasm of other parts of uterus; Z90.710 Acquired absence of both cervix and uterus; Z79.899 Other long term (current) drug therapy; Z98.890 Other specified postprocedural states
CPT/HCPCS: 27447; 36415; 73560; 80048; 85027; 86850; 86900; 86901; 88305; 88311; 96365; 96366; 96375; 96376; 97116; 97150; 97162; 97166; 97530; 97535; A4213; A4930; A6450; A6550; C1776; G0378; G0379; J0171; J0690; J0780; J1170; J1885; J2060; J2270; J2405; J2710; J2795; J3010; J3370; J3490; A6454; J2370